=== PATIENT | male | born 1965 | race Caucasian/White ===

== ENCOUNTER 2017-07-02 13:59 | Emergency (ER) | payer MEDICARE ==
[~2017-07-02] VITALS: Ht 167.6 cm; Wt 74.8 kg
[2017-07-02 14:18] VITALS: BP 173/70
[2017-07-02] MEDS ORDERED: MORPHINE SULFATE 10 MG/ML INJ 1ML SDV IM ONE (14:30)
[2017-07-02] MEDS ORDERED: PROMETHAZINE HCL 25 MG/ML 1ML IM ONE (14:30)
[2017-07-02] MEDS ORDERED: MORPHINE SULFATE 4 MG/ML SYR/VIAL IM ONE (15:00)
== END 2017-07-02 15:40 | disposition home or self-care (01) ==
LOC: ER 14:07
DX: G43.009 Migraine without aura, not intractable, without status migrainosus (principal); Z88.8 Allergy status to other drugs, medicaments and biological substances; Z88.6 Allergy status to analgesic agent; Z94.0 Kidney transplant status
CPT/HCPCS: 96372; 99284; J2270; J2550

== ENCOUNTER 2017-09-30 11:26 | Emergency (ER) | payer MEDICARE ==
[~2017-09-30] VITALS: Ht 167.6 cm; Wt 74.8 kg
[2017-09-30 11:55] VITALS: BP 98/52
[2017-09-30] MEDS ORDERED: cefTRIAXone 1GM/10ml IVPUSH 10 ML IV ONE (12:45)
[2017-09-30] MEDS ORDERED: ONDANSETRON HCL 4 MG/2 ML VIAL IV ONE (12:45)
[2017-09-30] MEDS ORDERED: MORPHINE SULFATE 4 MG/ML SYR/VIAL IV ONE (12:45)
== END 2017-09-30 13:30 | disposition home or self-care (01) ==
LOC: ER 11:26
DX: B35.3 Tinea pedis (principal); Z88.6 Allergy status to analgesic agent
CPT/HCPCS: 96374; 96375; 99284; J2270; J2405

== ENCOUNTER 2017-10-02 10:53 | Emergency (ER) | payer MEDICARE ==
[~2017-10-02] VITALS: Ht 167.6 cm; Wt 73.9 kg
[2017-10-02 11:26] VITALS: BP 113/66
[2017-10-02 12:18] LABS: Basophils # (auto) 0.1 uL; Basophils % (auto) 0.5 % (0.0-2.0); Eosinophils # (auto) 0.1 uL; Eosinophils % (auto) 1.3 % (0.0-7.0); Hematocrit 45.4 % (41.0-53.0); Hemoglobin 14.8 g/dL (13.5-17.5); Lymphocytes # (auto) 0.6 uL; Lymphocytes % (auto) 5.2 % (10.0-50.0); Mean Corpuscular Hemoglobin 30.1 pg (28.0-32.0); Mean Corpuscular Hgb Conc. 32.5 g/dL (32.0-36.0); Mean Corpuscular Volume 92.4 fL (80.0-100.0); Monocytes # (auto) 0.8 uL; Monocytes % (auto) 6.8 % (0.0-12.0); Neutrophils # (auto) 9.8 uL; Neutrophils % (auto) 86.2 % (37.0-80.0); Nucleated Red Blood Cells % 0.2 %; Platelet Count (auto) 227 10^3/uL (140-450); Red Blood Cells 4.92 10^6/uL (4.5-5.90); Red Cell Distribution Width 14.5 % (11.8-14.3); White Blood Cell 11.4 10^3/uL (4.4-10.8)
[2017-10-02 12:49] LABS: Albumin 3.4 g/dL (3.4-5.0); BUN/Creatinine Ratio 15.8; Bilirubin, Total 0.5 mg/dL (0.2-1.0); Calcium 9.3 mg/dL (8.5-10.1); Potassium 4.8 mmol/L (3.5-5.1); Total Protein 7.7 g/dL (6.4-8.2)
== END 2017-10-02 16:40 | disposition left against medical advice (07) ==
LOC: ER 10:53
DX: M79.672 Pain in left foot (principal); Z53.21 Procedure and treatment not carried out due to patient leaving prior to being seen by health care provider
CPT/HCPCS: 36415; 73630; 80053; 83605; 85025; 87040

== ENCOUNTER 2017-10-04 08:41 | Inpatient (IN) | payer MEDICARE ==
[~2017-10-04] VITALS: Ht 167.6 cm; Wt 71.0 kg
[2017-10-04] MEDS ORDERED: SODIUM CHLORIDE 0.9% 1,000 ML IV ONE ×3 (12:28→12:45)
[2017-10-04] MEDS ORDERED: PIPERACILLIN-TAZOB 3.375GM 100 ML IV ONE (12:30)
[2017-10-04] MEDS ORDERED: SUMAtriptan SUCCINATE 6 MG/0.5 ML VL SC ONE (12:45)
[2017-10-04] MEDS ORDERED: traMADol HCL 50 MG TAB PO PRN (12:45)
[2017-10-04] MEDS ORDERED: ONDANSETRON HCL 4 MG/2 ML VIAL IV PRN (12:45)
[2017-10-04] MEDS ORDERED: cefTRIAXone 1GM/10ml IVPUSH 10 ML IV SCH (13:00)
[2017-10-04] MEDS: MYCOPHENOLATE 250 MG CAP PO SCH ×2 (13:15→22:00)
[2017-10-04] MEDS: TACROLIMUS 1 MG CAP PO SCH ×2 (13:15→22:00)
[2017-10-04] MEDS ORDERED: predniSONE 5 MG TAB PO SCH (13:15)
[2017-10-04 13:16] LABS: Basophils # (auto) 0 uL; Basophils % (auto) 0.3 % (0.0-2.0); Eosinophils # (auto) 0.1 uL; Eosinophils % (auto) 0.6 % (0.0-7.0); Hematocrit 46.8 % (41.0-53.0); Hemoglobin 15.3 g/dL (13.5-17.5); Lymphocytes # (auto) 0.6 uL; Mean Corpuscular Hgb Conc. 32.6 g/dL (32.0-36.0); Mean Corpuscular Volume 91.9 fL (80.0-100.0); Monocytes # (auto) 0.4 uL; Monocytes % (auto) 4.4 % (0.0-12.0); Neutrophils # (auto) 8.8 uL; Neutrophils % (auto) 88.7 % (37.0-80.0); Platelet Count (auto) 230 10^3/uL (140-450); Red Blood Cells 5.09 10^6/uL (4.5-5.90); Red Cell Distribution Width 14.3 % (11.8-14.3); White Blood Cell 9.9 10^3/uL (4.4-10.8)
[2017-10-04 13:21] LABS: Albumin 3.5 g/dL (3.4-5.0); Calcium 8.8 mg/dL (8.5-10.1); Potassium 5.4 mmol/L (3.5-5.1)
[2017-10-04 13:24] LABS: Bilirubin, Total 0.3 mg/dL (0.2-1.0); Total Protein 7.8 g/dL (6.4-8.2)
[2017-10-04 13:38] LABS: INR 0.96 (0.9-1.15); Prothrombin Time 10.5 sec (9.37-12.3)
[2017-10-04] MEDS ORDERED: CLINDAMYCIN 600 MG/4 ML VL IM SCH (14:00)
[2017-10-04] MEDS ORDERED: PROMETHAZINE HCL 25 MG/ML 1ML IV PRN (15:00)
[2017-10-04] MEDS: CLINDAMYCIN 600MG IV 50 ML IV SCH ×2 (16:06→23:30)
[2017-10-04 17:38] LABS: Urine Bacteria NONE SEEN /hpf (None Seen); Urine Blood Negative /uL (Negative); Urine Specific Gravity 1.011 (1.001-1.035); Urine WBC <1 /hpf (0 - 3)
[2017-10-04] MEDS ORDERED: MYCO1TAB2 PO (19:32)
[2017-10-04] MEDS ORDERED: PRE5T PO (19:32)
[2017-10-04] MEDS ORDERED: TACR0.5C3 PO (19:32)
[2017-10-04] MEDS: MORPHINE SULFATE 4 MG/ML SYR/VIAL IV PRN (20:45)
[2017-10-04 22:04] VITALS: BP 115/59
[2017-10-05] MEDS: MORPHINE SULFATE 4 MG/ML SYR/VIAL IV PRN ×5 (02:22→22:39)
[2017-10-05 05:05] VITALS: BP_SYST 135; BP_SYST 151; BP_DIAS 76; BP_DIAS 87
[2017-10-05] MEDS ORDERED: MYCOPHENOLATE 250 MG CAP PO SCH (07:00)
[2017-10-05 07:23] LABS: BUN/Creatinine Ratio 17.7; Basophils # (auto) 0 uL; Basophils % (auto) 0.3 % (0.0-2.0); Eosinophils # (auto) 0.2 uL; Eosinophils % (auto) 2.6 % (0.0-7.0); Hematocrit 47.4 % (41.0-53.0); Hemoglobin 15.3 g/dL (13.5-17.5); Lymphocytes # (auto) 1.4 uL; Lymphocytes % (auto) 19.1 % (10.0-50.0); Mean Corpuscular Hemoglobin 30.1 pg (28.0-32.0); Mean Corpuscular Hgb Conc. 32.3 g/dL (32.0-36.0); Mean Corpuscular Volume 93.3 fL (80.0-100.0); Monocytes # (auto) 0.6 uL; Monocytes % (auto) 7.7 % (0.0-12.0); Neutrophils # (auto) 5.2 uL; Neutrophils % (auto) 70.3 % (37.0-80.0); Nucleated Red Blood Cells % 0.1 %; Platelet Count (auto) 217 10^3/uL (140-450); Potassium 5.4 mmol/L (3.5-5.1); Red Blood Cells 5.08 10^6/uL (4.5-5.90); Red Cell Distribution Width 14.6 % (11.8-14.3); White Blood Cell 7.3 10^3/uL (4.4-10.8)
[2017-10-05 08:30] VITALS: BP 141/73
[2017-10-05] MEDS ORDERED: TACR1CAP4 PO (08:59)
[2017-10-05] MEDS ORDERED: TACR5CAP3 PO (08:59)
[2017-10-05] MEDS ORDERED: MYCO500T PO ×2 (08:59)
[2017-10-05] MEDS: CLINDAMYCIN 600MG IV 50 ML IV SCH ×3 (09:17→23:36)
[2017-10-05] MEDS: cefTRIAXone 1GM/10ml IVPUSH 10 ML IV SCH (09:17)
[2017-10-05] MEDS: MYCOPHENOLATE 360 MG PO SCH ×2 (09:36→18:59)
[2017-10-05] MEDS: TACROLIMUS 0.5 MG CAP PO SCH (09:37)
[2017-10-05] MEDS: TACROLIMUS 1 MG CAP PO SCH ×2 (09:37→19:00)
[2017-10-05] MEDS ORDERED: predniSONE 5 MG TAB PO SCH (10:00)
[2017-10-05 12:56] VITALS: BP 120/64
[2017-10-05] MEDS: SODIUM CHLORIDE 0.9% 1,000 ML IV SCH (15:30)
[2017-10-05 17:03] VITALS: BP 145/89
[2017-10-05] MEDS ORDERED: TACROLIMUS 1 MG CAP PO SCH (19:00)
[2017-10-05 22:00] VITALS: BP 147/92
[2017-10-06] MEDS: SODIUM CHLORIDE 0.9% 1,000 ML IV SCH ×3 (01:30→22:15)
[2017-10-06] MEDS: MORPHINE SULFATE 4 MG/ML SYR/VIAL IV PRN ×5 (05:00→22:19)
[2017-10-06 05:28] VITALS: BP 160/78
[2017-10-06] MEDS: TACROLIMUS 1 MG CAP PO SCH ×2 (06:31→19:05)
[2017-10-06] MEDS: TACROLIMUS 0.5 MG CAP PO SCH (06:31)
[2017-10-06] MEDS: MYCOPHENOLATE 360 MG PO SCH ×2 (06:32→19:05)
[2017-10-06] MEDS: predniSONE 5 MG TAB PO SCH (06:39)
[2017-10-06 07:45] LABS: BUN/Creatinine Ratio 15.4; Calcium 8.6 mg/dL (8.5-10.1); Potassium 5.5 mmol/L (3.5-5.1)
[2017-10-06] MEDS: CLINDAMYCIN 600MG IV 50 ML IV SCH ×3 (08:00→23:31)
[2017-10-06 09:00] VITALS: BP 140/70
[2017-10-06] MEDS: cefTRIAXone 1GM/10ml IVPUSH 10 ML IV SCH (09:23)
[2017-10-06] MEDS ORDERED: SODIUM CHLORIDE 0.9% 1,000 ML IV SCH (12:00)
[2017-10-06] MEDS ORDERED: SODIUM POLYSTYRENE SULF 15GM/60ML SUSP PO ONE (12:00)
[2017-10-06 12:53] VITALS: BP 157/73
[2017-10-06] MEDS: ACETYLCYSTEINE ORAL for CIN 20%(200MG/ML) 4ML PO SCH ×2 (13:03→22:18)
[2017-10-06 17:00] VITALS: BP 107/53
[2017-10-06 22:00] VITALS: BP 150/70
[2017-10-07] MEDS: MORPHINE SULFATE 4 MG/ML SYR/VIAL IV PRN ×5 (03:20→22:14)
[2017-10-07] MEDS: SODIUM CHLORIDE 0.9% 1,000 ML IV SCH ×2 (03:23→18:15)
[2017-10-07 06:06] VITALS: BP 150/78
[2017-10-07] MEDS: TACROLIMUS 1 MG CAP PO SCH ×2 (06:31→18:57)
[2017-10-07] MEDS: predniSONE 5 MG TAB PO SCH (06:31)
[2017-10-07] MEDS: MYCOPHENOLATE 360 MG PO SCH ×2 (06:32→18:56)
[2017-10-07] MEDS: TACROLIMUS 0.5 MG CAP PO SCH (06:32)
[2017-10-07 06:55] LABS: BUN/Creatinine Ratio 11.3; Calcium 8.6 mg/dL (8.5-10.1); Potassium 4.8 mmol/L (3.5-5.1)
[2017-10-07] MEDS: CLINDAMYCIN 600MG IV 50 ML IV SCH ×3 (08:07→23:51)
[2017-10-07 08:23] VITALS: BP 126/65
[2017-10-07] MEDS: cefTRIAXone 1GM/10ml IVPUSH 10 ML IV SCH (09:12)
[2017-10-07] MEDS: ACETYLCYSTEINE ORAL for CIN 20%(200MG/ML) 4ML PO SCH ×2 (10:38→22:00)
[2017-10-07] MEDS ORDERED: LIDOCAINE 2%HCL (LOCAL ANESTH.) INJ 20ML MDV ONE (11:56)
[2017-10-07] MEDS ORDERED: IOHEXOL 350 MG/ML 100ML IJ ONE (11:56)
[2017-10-07] MEDS ORDERED: fentaNYL CITRATE 100 MCG/2 ML VL ONE (11:57)
[2017-10-07] MEDS ORDERED: ANGIOMAX 250 MG VIAL IV ONE (11:57)
[2017-10-07] MEDS ORDERED: SODIUM CHL 0.9% 50 ML ONE (11:58)
[2017-10-07] MEDS ORDERED: MIDAZOLAM HCL 1MG/1ML-2 ML VIAL ONE ×2 (11:58→12:28)
[2017-10-07] MEDS ORDERED: VERAPAMIL 2.5MG/ML INJ 2ML VIAL IV ONE (11:59)
[2017-10-07] MEDS ORDERED: IODIXANOL 320MG/ML 100ML BTL IV ONE (12:12)
[2017-10-07] MEDS ORDERED: ASPirin-EC 325mg tab PO ONE (13:45)
[2017-10-07 14:59] VITALS: BP 126/74
[2017-10-07 17:17] VITALS: BP 107/52
[2017-10-07 21:47] VITALS: BP 127/67
[2017-10-08] MEDS: MORPHINE SULFATE 4 MG/ML SYR/VIAL IV PRN ×5 (02:54→22:32)
[2017-10-08 05:11] VITALS: BP 158/82
[2017-10-08] MEDS: MYCOPHENOLATE 360 MG PO SCH ×2 (06:57→18:05)
[2017-10-08] MEDS: predniSONE 5 MG TAB PO SCH (06:57)
[2017-10-08] MEDS: TACROLIMUS 1 MG CAP PO SCH ×3 (06:57→18:04)
[2017-10-08] MEDS: TACROLIMUS 0.5 MG CAP PO SCH (06:59)
[2017-10-08 07:56] VITALS: BP 147/79
[2017-10-08] MEDS: SODIUM CHLORIDE 0.9% 1,000 ML IV SCH ×2 (08:11→15:30)
[2017-10-08] MEDS: CLINDAMYCIN 600MG IV 50 ML IV SCH ×2 (09:34→16:27)
[2017-10-08] MEDS: cefTRIAXone 1GM/10ml IVPUSH 10 ML IV SCH (09:34)
[2017-10-08] MEDS: ASPirin-EC 81 mg tab PO SCH (09:35)
[2017-10-08 12:44] VITALS: BP 157/85
[2017-10-08 16:50] VITALS: BP 146/74
[2017-10-08 22:00] VITALS: BP 112/64
[2017-10-09] MEDS: CLINDAMYCIN 600MG IV 50 ML IV SCH ×4 (00:11→23:29)
[2017-10-09] MEDS: MORPHINE SULFATE 4 MG/ML SYR/VIAL IV PRN ×6 (04:25→23:23)
[2017-10-09] MEDS: SODIUM CHLORIDE 0.9% 1,000 ML IV SCH ×3 (04:50→18:10)
[2017-10-09 05:00] VITALS: BP 154/63
[2017-10-09] MEDS: TACROLIMUS 0.5 MG CAP PO SCH (06:27)
[2017-10-09] MEDS: TACROLIMUS 1 MG CAP PO SCH ×2 (06:27→19:06)
[2017-10-09] MEDS: predniSONE 5 MG TAB PO SCH (06:27)
[2017-10-09] MEDS: MYCOPHENOLATE 360 MG PO SCH ×2 (06:28→19:06)
[2017-10-09 07:21] LABS: Basophils # (auto) 0 uL; Basophils % (auto) 0.4 % (0.0-2.0); Eosinophils # (auto) 0.2 uL; Eosinophils % (auto) 2.2 % (0.0-7.0); Hematocrit 44.8 % (41.0-53.0); Hemoglobin 14.7 g/dL (13.5-17.5); Lymphocytes # (auto) 1.5 uL; Lymphocytes % (auto) 17.1 % (10.0-50.0); Mean Corpuscular Hemoglobin 30.4 pg (28.0-32.0); Mean Corpuscular Hgb Conc. 32.7 g/dL (32.0-36.0); Mean Corpuscular Volume 92.9 fL (80.0-100.0); Monocytes # (auto) 0.8 uL; Monocytes % (auto) 8.7 % (0.0-12.0); Neutrophils # (auto) 6.2 uL; Neutrophils % (auto) 71.6 % (37.0-80.0); Platelet Count (auto) 206 10^3/uL (140-450); Red Blood Cells 4.82 10^6/uL (4.5-5.90); Red Cell Distribution Width 14.4 % (11.8-14.3); White Blood Cell 8.7 10^3/uL (4.4-10.8)
[2017-10-09 07:42] LABS: Calcium 8.9 mg/dL (8.5-10.1)
[2017-10-09 07:50] LABS: BUN/Creatinine Ratio 15.6
[2017-10-09] MEDS: cefTRIAXone 1GM/10ml IVPUSH 10 ML IV SCH (08:39)
[2017-10-09 09:00] VITALS: BP 109/63
[2017-10-09] MEDS: ASPirin-EC 81 mg tab PO SCH (09:51)
[2017-10-09 12:35] VITALS: BP 140/72
[2017-10-09] MEDS ORDERED: LIDOCAINE 1% (LOCAL ANESTH.) PF 5ml SDV ID ONE (14:45)
[2017-10-09 16:35] VITALS: BP 158/69
[2017-10-09 22:00] VITALS: BP 148/70
[2017-10-09] MEDS: SODIUM CHLOR 0.9% PF (SALINE LOCK) 10ML VIAL/SYR IV SCH (22:36)
[2017-10-10] MEDS: MORPHINE SULFATE 4 MG/ML SYR/VIAL IV PRN ×5 (03:44→16:52)
[2017-10-10 04:35] VITALS: BP 134/64
[2017-10-10] MEDS: TACROLIMUS 1 MG CAP PO SCH (06:38)
[2017-10-10] MEDS: TACROLIMUS 0.5 MG CAP PO SCH (06:38)
[2017-10-10] MEDS: predniSONE 5 MG TAB PO SCH (06:38)
[2017-10-10] MEDS: MYCOPHENOLATE 360 MG PO SCH (06:39)
[2017-10-10 09:00] VITALS: BP 127/53
[2017-10-10] MEDS: cefTRIAXone 1GM/10ml IVPUSH 10 ML IV SCH (09:47)
[2017-10-10] MEDS: ASPirin-EC 81 mg tab PO SCH (09:47)
[2017-10-10] MEDS: CLINDAMYCIN 600MG IV 50 ML IV SCH ×2 (09:47→16:00)
[2017-10-10] MEDS: SODIUM CHLOR 0.9% PF (SALINE LOCK) 10ML VIAL/SYR IV SCH (12:03)
[2017-10-10] MEDS: SODIUM CHLORIDE 0.9% 1,000 ML IV SCH (12:05)
[2017-10-10 13:00] VITALS: BP 136/69
[2017-10-10] MEDS ORDERED: CARISOPRODOL 350 MG TAB PO ONE (15:30)
[2017-10-10 16:21] VITALS: BP 146/72
[2017-10-10] MEDS ORDERED: ATORVASTATIN 20 MG TAB PO SCH (22:00)
== END 2017-10-10 18:00 | disposition home health service (06) | DRG 252 ==
LOC: ER 08:41 → OVERFLOW 08:42 → WEST WING 17:49
PROVIDERS: ADMIT Internal Medicine; ATTEND Internal Medicine
PROC: 047S3ZZ Dilation of Left Posterior Tibial Artery, Percutaneous Approach (ICD-10-PCS; 2017-10-07)
PROC: B41G1ZZ Fluoroscopy of Left Lower Extremity Arteries using Low Osmolar Contrast (ICD-10-PCS; 2017-10-07)
PROC: 02HV33Z Insertion of Infusion Device into Superior Vena Cava, Percutaneous Approach (ICD-10-PCS; principal; 2017-10-09)
DX: I70.202 Unspecified atherosclerosis of native arteries of extremities, left leg (principal); N18.6 End stage renal disease; M86.172 Other acute osteomyelitis, left ankle and foot; G62.9 Polyneuropathy, unspecified; N18.3 Chronic kidney disease, stage 3 (moderate); L03.116 Cellulitis of left lower limb; L97.528 Non-pressure chronic ulcer of other part of left foot with other specified severity; Z94.0 Kidney transplant status; G89.4 Chronic pain syndrome; G43.909 Migraine, unspecified, not intractable, without status migrainosus; F17.210 Nicotine dependence, cigarettes, uncomplicated; H53.149 Visual discomfort, unspecified; S93.105A Unspecified dislocation of left toe(s), initial encounter; S90.425A Blister (nonthermal), left lesser toe(s), initial encounter; X58.XXXA Exposure to other specified factors, initial encounter; Y93.89 Activity, other specified; Y92.89 Other specified places as the place of occurrence of the external cause; Z99.2 Dependence on renal dialysis; Y99.8 Other external cause status; Z88.5 Allergy status to narcotic agent; Z88.6 Allergy status to analgesic agent; Z88.8 Allergy status to other drugs, medicaments and biological substances
CPT/HCPCS: 36415; 36569; 37228; 71045; 73560; 73630; 73700; 73718; 75710; 76937; 80048; 80053; 81001; 83605; 85025; 85610; 85652; 85730; 86141; 87040; 93926; 93971; 96361; 96365; 96372; J2250; J2543; J3490; J7507; J7517; Q9967

== ENCOUNTER 2017-10-24 21:09 | Inpatient (IN) | payer MEDICARE ==
[~2017-10-24] VITALS: Ht 165.1 cm; Wt 65.3 kg
[~2017-10-24 21:09] MED LIST: MYCO1TAB2 PO; MYCO500T PO; PRE5T PO; TACR0.5C3 PO; TACR1CAP4 PO; TACR5CAP3 PO
[2017-10-24] MEDS ORDERED: MORPHINE SULFATE 8mg/ml INJ SDV IV ONE (22:00)
[2017-10-24 22:01] LABS: Urine WBC None Seen /hpf (0 - 3)
[2017-10-24 22:25] LABS: Basophils # (auto) 0 uL; Basophils % (auto) 0.3 % (0.0-2.0); Eosinophils # (auto) 0.4 uL; Eosinophils % (auto) 2.2 % (0.0-7.0); Hematocrit 48.6 % (41.0-53.0); Hemoglobin 15.8 g/dL (13.5-17.5); Lymphocytes # (auto) 1.5 uL; Mean Corpuscular Hgb Conc. 32.5 g/dL (32.0-36.0); Mean Corpuscular Volume 92.2 fL (80.0-100.0); Monocytes # (auto) 1.3 uL; Neutrophils % (auto) 82.5 % (37.0-80.0); Platelet Count (auto) 175 10^3/uL (140-450); Red Blood Cells 5.27 10^6/uL (4.5-5.90); Red Cell Distribution Width 15.1 % (11.8-14.3); White Blood Cell 18.2 10^3/uL (4.4-10.8)
[2017-10-24 22:31] LABS: Urine Bacteria NONE SEEN /hpf (None Seen); Urine Blood TRACE /uL (Negative); Urine Hyaline Cast FEW /lpf (0 - 2); Urine Mucus FEW (None Seen); Urine Specific Gravity 1.034 (1.001-1.035)
[2017-10-24 22:52] LABS: Alanine Aminotransferase 37 U/L (16-61); Anion Gap 8 (5-15); Aspartate Aminotransferase 45 U/L (15-37); BUN/Creatinine Ratio 17.6; Blood Urea Nitrogen 31 mg/dL (7-18); Calcium 9.8 mg/dL (8.5-10.1); Carbon Dioxide 25 mmol/L (21-32); Chloride 101 mmol/L (98-107); GFR African American 52 mL/min; GFR Non-African American 43 mL/min; Glucose 100 mg/dL (74-106); Potassium 4.4 mmol/L (3.5-5.1); Sodium 134 mmol/L (136-145)
[2017-10-24 22:55] LABS: Alkaline Phosphatase 94 U/L (45-117); Bilirubin, Total 0.3 mg/dL (0.2-1.0); Total Protein 8.5 g/dL (6.4-8.2)
[2017-10-24 23:17] LABS: INR 0.95 (0.9-1.15); Partial Thromboplastin Time 33.5 sec (23.78-33.04); Prothrombin Time 10.2 sec (9.27-12.13)
[2017-10-25] MEDS ORDERED: MORPHINE SULFATE 10 MG/ML INJ 1ML SDV IV ONE
[2017-10-25] MEDS ORDERED: traMADol HCL 50 MG TAB PO PRN (01:15)
[2017-10-25] MEDS ORDERED: cefTRIAXone 1GM/10ml IVPUSH 10 ML IV ONE (01:15)
[2017-10-25] MEDS ORDERED: MORPHINE SULFATE 8mg/ml INJ SDV IV PRN (01:15)
[2017-10-25] MEDS ORDERED: NITROGLYCERIN 0.4 MG SL TAB SL PRN (01:15)
[2017-10-25] MEDS: SODIUM CHLORIDE 0.9% 1,000 ML IV SCH ×2 (02:00→14:22)
[2017-10-25] MEDS: MORPHINE SULFATE 8mg/ml INJ SDV IV PRN ×5 (05:18→22:37)
[2017-10-25] MEDS ORDERED: GASTROGRAFIN 120 ML SOL ONE (08:29)
[2017-10-25] MEDS: MYCOPHENOLATE 500 MG TAB PO SCH ×2 (10:00→21:27)
[2017-10-25] MEDS: TACROLIMUS 0.5MG CAP PO SCH (10:00)
[2017-10-25] MEDS: predniSONE 5 MG TAB PO SCH ×2 (10:00→10:08)
[2017-10-25] MEDS ORDERED: TACROLIMUS 0.5 MG CAP PO SCH (10:00)
[2017-10-25 10:06] VITALS: BP 132/64
[2017-10-25] MEDS: cefTRIAXone 1GM/10ml IVPUSH 10 ML IV SCH (10:07)
[2017-10-25] MEDS: PANTOPRAZOLE 40 MG/10 ML VIAL IV SCH (10:07)
[2017-10-25] MEDS: ENOXAPARIN SOD 30 MG/0.3 ML SYRINGE SC SCH (10:09)
[2017-10-25] MEDS ORDERED: PRE5T PO (11:58)
[2017-10-25] MEDS ORDERED: MYCO1TAB2 PO (11:58)
[2017-10-25] MEDS ORDERED: TACR1CAP19 PO ×2 (11:58)
[2017-10-25 13:00] VITALS: BP 119/74
[2017-10-25 17:07] VITALS: BP 119/57
[2017-10-25 22:00] VITALS: BP 139/61
[2017-10-25] MEDS ORDERED: ATORVASTATIN 20 MG TAB PO SCH (22:00)
[2017-10-25] MEDS ORDERED: TACROLIMUS 1 MG CAP PO SCH (22:00)
[2017-10-26] MEDS: SODIUM CHLORIDE 0.9% 1,000 ML IV SCH (02:28)
[2017-10-26 05:04] VITALS: BP 143/69
[2017-10-26 06:54] LABS: Basophils # (auto) 0 uL; Basophils % (auto) 0.5 % (0.0-2.0); Eosinophils # (auto) 0.3 uL; Eosinophils % (auto) 4.7 % (0.0-7.0); Hematocrit 43.3 % (41.0-53.0); Hemoglobin 14.6 g/dL (13.5-17.5); Lymphocytes # (auto) 1.5 uL; Lymphocytes % (auto) 20.2 % (10.0-50.0); Mean Corpuscular Hgb Conc. 33.7 g/dL (32.0-36.0); Mean Corpuscular Volume 91.9 fL (80.0-100.0); Monocytes # (auto) 0.5 uL; Monocytes % (auto) 7.1 % (0.0-12.0); Neutrophils % (auto) 67.5 % (37.0-80.0); Nucleated Red Blood Cells % 0.1 %; Platelet Count (auto) 127 10^3/uL (140-450); Red Blood Cells 4.71 10^6/uL (4.5-5.90); Red Cell Distribution Width 14.9 % (11.8-14.3); White Blood Cell 7.4 10^3/uL (4.4-10.8)
[2017-10-26] MEDS: MORPHINE SULFATE 8mg/ml INJ SDV IV PRN (06:56)
[2017-10-26 07:21] LABS: Albumin 3.3 g/dL (3.4-5.0); BUN/Creatinine Ratio 20.8; Bilirubin, Total 0.5 mg/dL (0.2-1.0); Potassium 4.1 mmol/L (3.5-5.1); Total Protein 6.9 g/dL (6.4-8.2)
[2017-10-26 09:00] VITALS: BP 113/62
[2017-10-26] MEDS: cefTRIAXone 1GM/10ml IVPUSH 10 ML IV SCH (09:57)
[2017-10-26] MEDS: PANTOPRAZOLE 40 MG/10 ML VIAL IV SCH (09:58)
[2017-10-26] MEDS: predniSONE 5 MG TAB PO SCH ×2 (09:58→10:00)
[2017-10-26] MEDS: ENOXAPARIN SOD 30 MG/0.3 ML SYRINGE SC SCH (09:58)
[2017-10-26] MEDS: MYCOPHENOLATE 500 MG TAB PO SCH ×2 (09:59→10:00)
[2017-10-26] MEDS: TACROLIMUS 0.5MG CAP PO SCH (10:00)
[2017-10-26] MEDS ORDERED: MORPHINE SULFATE 10 MG/ML INJ 1ML SDV IV PRN ×2 (12:30)
== END 2017-10-26 17:26 | disposition home or self-care (01) | DRG 389 ==
LOC: ER 21:09 → TELE 21:10 → TELE-CENTR 10-25 10:04
PROVIDERS: ADMIT Nurse Practitioner; ATTEND Internal Medicine
DX: K56.609 Unspecified intestinal obstruction, unspecified as to partial versus complete obstruction (principal); R65.10 Systemic inflammatory response syndrome (SIRS) of non-infectious origin without acute organ dysfunction; N18.3 Chronic kidney disease, stage 3 (moderate); R16.1 Splenomegaly, not elsewhere classified; Z94.0 Kidney transplant status; M54.9 Dorsalgia, unspecified; I70.90 Unspecified atherosclerosis; N26.1 Atrophy of kidney (terminal); Z88.8 Allergy status to other drugs, medicaments and biological substances; Z90.49 Acquired absence of other specified parts of digestive tract; Z88.5 Allergy status to narcotic agent
CPT/HCPCS: 36415; 71045; 74176; 74250; 80053; 81001; 84484; 85025; 85610; 85730; 87040; 87081; 93005; 96374; 96375; C9113; J2270; J7507; J7517

== ENCOUNTER 2018-09-05 08:30 | Emergency (ER) | payer SELFPAY ==
[~2018-09-05] VITALS: Ht 167.6 cm; Wt 71.7 kg
[~2018-09-05 08:30] MED LIST changes: -MYCO500T PO; -TACR0.5C3 PO; +TACR1CAP19 PO; -TACR1CAP4 PO; -TACR5CAP3 PO
[2018-09-05 09:12] VITALS: BP 119/72
== END 2018-09-05 10:08 | disposition home or self-care (01) ==
LOC: ER 08:43
DX: J02.9 Acute pharyngitis, unspecified (principal); J40 Bronchitis, not specified as acute or chronic
CPT/HCPCS: 71046

== ENCOUNTER 2019-06-16 08:51 | Emergency (ER) | payer BC, MEDICARE ==
[~2019-06-16] VITALS: Ht 167.6 cm; Wt 74.8 kg
[2019-06-16 09:06] VITALS: BP 133/87
[2019-06-16] MEDS ORDERED: ONDANSETRON ODT 4 MG TAB PO ONE (10:45)
[2019-06-16] MEDS ORDERED: diphenhdrAMINE HCL 50 MG/1 ML VL IM ONE (10:45)
[2019-06-16] MEDS ORDERED: KETOROLAC TROMETH 60MG/2ML VIAL IM ONE (10:45)
== END 2019-06-16 11:25 | disposition home or self-care (01) ==
LOC: ER 08:51
DX: G43.909 Migraine, unspecified, not intractable, without status migrainosus (principal); Z88.6 Allergy status to analgesic agent; Z88.8 Allergy status to other drugs, medicaments and biological substances
CPT/HCPCS: 96372; 99283; J1200; J1885; Q0162